=== PATIENT | female | born 1960 | race Caucasian/White ===

== ENCOUNTER 2023-06-08 08:58 | Day surgery (SDC) | payer OTHER ==
[~2023-06-08] VITALS: Ht 154.9 cm; Wt 93.9 kg
[2023-06-08] MEDS ORDERED: LIDOCAINE 2% 100 MG/5 ML UJET TP ONE (09:32)
[2023-06-08] MEDS ORDERED: fentaNYL citrate 0.05 MG/ML VIAL ONE (09:32)
== END 2023-06-08 12:00 | disposition home or self-care (01) ==
LOC: MDS 08:58 → MMU 09:00 → MDS 12:00
PROVIDERS: ATTEND Internal Medicine Gastroenterology
DX: Z12.11 Encounter for screening for malignant neoplasm of colon (principal); K57.30 Diverticulosis of large intestine without perforation or abscess without bleeding; E11.9 Type 2 diabetes mellitus without complications; Z79.84 Long term (current) use of oral hypoglycemic drugs; Z79.899 Other long term (current) drug therapy
CPT/HCPCS: 45378; 82948; J3010